=== PATIENT | female | born 2000 | race Caucasian/White ===

== ENCOUNTER 2021-07-19 08:42 | Emergency (ER) | payer MEDICAID ==
[~2021-07-19] VITALS: Ht 170.2 cm; Wt 101.7 kg
[2021-07-19 10:56] VITALS: BP 142/79
[2021-07-19] MEDS ORDERED: COVID-19 VACC,MRNA(MODERNA)/PF 100 MCG/0.5ML IM-VACC ONE ×2 (11:00)
--- NOTE | 2021-07-19 11:01 | NUR ---
PT COMPLETED COVID VACCINE SCREENING FORM. VACCINE GIVEN BY GRAY FIELD. PT RESTING ON Rounds W/ CALL LIGHT IN REACH AND SIDE RAILS UPX2. RESP EVEN AND UNLABORED, ALFONSO.
--- NOTE | 2021-07-19 11:20 | NUR ---
Patient given discharge instructions and they have confirmed that they understand the instructions. Patient ambulatory with steady gait.
== END 2021-07-19 11:21 | disposition home or self-care (01) ==
LOC: ED 11:15
DX: K08.89 Other specified disorders of teeth and supporting structures (principal); Z23 Encounter for immunization
CPT/HCPCS: 0011A; 91301; 99283